=== PATIENT | female | born 1950 | race Caucasian/White ===

== ENCOUNTER → 2016-10-12 | Outpatient (CLI) | payer OTHER ==
--- NOTE | 2016-10-12 14:18 | DI ---
MRI LUMBAR SPINE SCAN WITHOUT IV CONTRAST, 10/12/2016 12:59 PM: Clinical History: Lumbar radiculopathy. Previous Exam: 08/30/2015. Technique: Sagittal and axial T2 weighted; sagittal T1 weighted and T2 STIR; and axial PD. There is a compression fracture of T12 with loss of height greater than 50% and with minimal increase d signal intensity along the superior endplate. On the previous exam, there was loss of height less t lorenzo 50% with increased signal throughout the vertebral body. The lumbar vertebral bodies are of tacos l height. The patient is status post anterior and posterior fusion at L4-5 with an L4 laminectomy. Th e cord terminates at T12 and the conus medullaris is normal. There is a focal central bulging but not herniated disc without canal or neural foraminal stenosis at T10-11. T11-12 has a bulging but not he rniated disc as well as posterior displacement of the posterior and superior margin of the body of T1 2. There is no canal or neural foraminal stenosis. T12-L1 through L2-3 have minimally circumferential ly bulging but not herniated discs without canal or neural foraminal stenosis. L3-4 has a circumferen tially bulging but not herniated disc and hypertrophic changes of the apophyseal joints and especiall y the right ligamentum flavum and together there is severe spinal canal stenosis without significant neural foraminal stenosis. The bone graft at L4-5 appears solid there is no canal or neural foraminal stenosis. The L5-S1 disc space is normal. Readin. There is severe spinal canal stenosis at L3-4 secondary to a circumferentially bulging but not he rniated disc and hypertrophic changes of the apophyseal joints and ligamentum flavum. There is no sig nificant neural foraminal stenosis. 2. Status post anterior and posterior fusions at L4-5 without canal or neural foraminal stenosis. Th e fusion appears solid. 3. There are bulging but not herniated discs without canal or neural foraminal stenosis at T10-11 th rough L2-3. 4. There is a compression fracture of T12 that shows decreased height when compared to the previous study of 08/30/2015, and there is only minimal increased signal intensity in a sagittal STIR sequence . 5. The L5-S1 disc space is normal.
== END ==
LOC: MRI 12:51
PROVIDERS: ATTEND Family Medicine
DX: M54.16 Radiculopathy, lumbar region (principal); M47.26 Other spondylosis with radiculopathy, lumbar region; M47.814 Spondylosis without myelopathy or radiculopathy, thoracic region; M48.54XG Collapsed vertebra, not elsewhere classified, thoracic region, subsequent encounter for fracture with delayed healing
CPT/HCPCS: 72148